=== PATIENT | male | born 1960 | race Caucasian/White ===

== ENCOUNTER → 2021-05-20 16:03 | Outpatient (CLI) | payer OTHER, SELFPAY ==
--- NOTE | ~2021-05-20 | XR_ITS ---
XR_[id number]_CR DATE: 05/20/2021 16:13 INDICATION: Neck pain TECHNIQUE: Open-mouth, AP, lateral, swimmer views COMPARISON: None FINDINGS: There is straightening of the cervical spine which may indicate muscle spasm. There is slight anterolisthesis at C3-4. There is slight retrolisthesis at C4-5. There is moderate degenerative disc disease and loss of disc space height at C5-6. Remaining cervical interspaces are well preserved. C1 and C2 are normally aligned and the odontoid process is intact. No fracture or dislocation or lock ed facet. No prevertebral soft tissue swelling. There is prominent degenerative change at the apophyseal joints. Uncovertebral joint spurring is note d in the mid to lower cervical spine. IMPRESSION: Straightening, which may be due to muscle spasm Minimal anterolisthesis at C3-4 Minimal retrolisthesis at C4-5 Moderately prominent degenerative disc disease at C5-6 Prominent degenerative change at the apophyseal joints throughout the cervical spine and of the mid t o lower uncovertebral joints Reviewed, dictated and finalized at Location A. Reviewed, dictated and finalized at location B. IMPRESSION: Straightening, which may be due to muscle spasm Minimal anterolisthesis at C3-4 Minimal retrolisthesis at C4-5 Moderately prominent degenerative disc disease at C5-6 Prominent degenerative change at the apophyseal joints throughout the cervical spine and of the mid to lower uncovertebral joints
== END ==
PROVIDERS: PCP Emergency Medicine; Visit Provider Emergency Medicine
DX: M48.02 Spinal stenosis, cervical region (principal); M47.812 Spondylosis without myelopathy or radiculopathy, cervical region; M53.82 Other specified dorsopathies, cervical region; M43.12 Spondylolisthesis, cervical region; M50.322 Other cervical disc degeneration at C5-C6 level
CPT/HCPCS: 72040

== ENCOUNTER → 2021-08-12 17:55 | Outpatient (CLI) | payer OTHER, SELFPAY ==
--- NOTE | ~2021-08-12 | MR_ITS ---
EXAMINATION: MR cervical spine wo con EXAM DATE: 08/12/2021 18:49 INDICATION: Cervicalgia, neck and upper back pain. TECHNIQUE: Multi-sequential, multiplanar MR images of the cervical spine were obtained without contra st. Axial T2, axial T2 MERGE sequence. Sagittal T1, T2, T2 fat saturation images also obtained. Com parison is made to prior examination from 02/09/2017. FINDINGS: There is mild disc disease at C5-6. The vertebral body and disc heights are otherwise well maintained. The vertebral bodies are aligned in the AP dimension. The spinal cord signal intensity a nd intrinsic morphology is normal. Cervicomedullary junction is normal in appearance. There are no gr spicious marrow signal abnormalities. Paraspinal soft tissue is unremarkable. Level by level evaluation: C2-C3: Disc does not extend beyond the endplate margin. Uncovertebral joint arthropathy: None. Facet joint arthropathy: Severe left, mild to moderate right. Neural foraminal stenosis: Mild left. Central canal stenosis: No stenosis. C3-C4: Disc does not extend beyond the endplate margin. Uncovertebral joint arthropathy: Mild to moderate left, mild right. Facet joint arthropathy: Severe left, moderate right. Neural foraminal stenosis: Severe left, mild to moderate right. Central canal stenosis: No stenosis. C4-C5: Disc does not extend beyond the endplate margin. Uncovertebral joint arthropathy: Mild to moderate bilateral. Facet joint arthropathy: Severe left, moderate right. Neural foraminal stenosis: Moderate left, mild to moderate right. Central canal stenosis: No stenosis. C5-C6: There is a mild diffuse disc bulge asymmetric to the right Uncovertebral joint arthropathy: Moderate bilateral. Facet joint arthropathy: Moderate to severe right, moderate left. Neural foraminal stenosis: No stenosis. Central canal stenosis: Moderate to severe right, moderate left. C6-C7: There is a mild diffuse disc bulge. Uncovertebral joint arthropathy: Mild to moderate bilateral. Facet joint arthropathy: Mild to moderate left, mild right. Neural foraminal stenosis: No stenosis. Central canal stenosis: No stenosis. C7-T1: Disc does not extend beyond the endplate margin. Uncovertebral joint arthropathy: None. Facet joint arthropathy: Mild bilateral. Neural foraminal stenosis: No stenosis. Central canal stenosis: No stenosis. Mild progression cervical spondylosis as detailed above. IMPRESSION: 1. Advanced cervical facet arthropathy, with multilevel neural foraminal stenosis as detailed above. Reviewed, dictated and finalized at location B. IMPRESSION: 1. Advanced cervical facet arthropathy, with multilevel neural foraminal steno sis as detailed above.
== END ==
PROVIDERS: PCP Emergency Medicine; Visit Provider Nurse Practitioner Family
DX: M54.2 Cervicalgia (principal); M48.02 Spinal stenosis, cervical region; M12.88 Other specific arthropathies, not elsewhere classified, other specified site
CPT/HCPCS: 72141

== ENCOUNTER 2022-10-27 12:16 | Day surgery (SDC) | payer OTHER, SELFPAY ==
[2022-09-23 15:05] VITALS: BMI 23.7
[2022-10-19 09:05] VITALS: BMI 22.8
--- NOTE | 2022-10-26 09:47 | WPDANESEPPF ---
Anes - Initial Pre Proc Eval Procedure: Operation Date: 10/27/22 14:00 Proposed Procedures p Screening Colonoscopy - Yohan Corbett MD Date/Time: 10/26/22 09:47 Surgeon: Yohan Corbett MD Pre Op Diagnosis: Neoplasm Screening Patient Data Age: 61 Gender: M Height: 1.73 m Weight: 68 kg Allergies Allergy/AdvReac Type Severity Reaction Status Date / Time No Known Allergies Allergy Verified 10/27/22 12:37 Home Medications Medication Instructions Recorded Confirmed Type niacin 500 mg tablet See Rx Instructions .Route .COMPLEX 04/07/20 10/27/22 History cyclobenzaprine 10 mg tablet See Rx Instructions PO .COMPLEX 04/13/21 10/27/22 Rx #60 tabs tramadol 50 mg tablet 50 mg PO Q6H PRN pain #30 tabs 04/13/21 10/27/22 Rx sodium,potassium,mag sulfates 17.5 See Rx Instructions PO .COMPLEX 09/23/22 10/27/22 Rx gram-3.13 gram-1.6 gram oral soln #354 mL (Suprep Bowel Prep Kit) clobetasol 0.05 % topical ointment 10/19/22 10/27/22 History (Temovate) cyclosporine 0.05 % eye drops in a 1 drp EACH EYE DAILY 10/19/22 10/27/22 History dropperette (Restasis) Patient hx anesthesia problems: none Family hx anesthesia problems: none Results Review: All pre-operative results and documents have been reviewed as part of the pre-operative evaluation. [facility] Past Medical History Medical History (Updated 10/26/22 @ 09:48 by Haroon Pierre DO) Spinal stenosis, cervical region Family History Family History Father Family history of liver disease Mother Diabetes mellitus, Onset Age: 73 Family history of liver disease, Onset Age: 73 Family history of arthritis, Onset Age: 73 Social History Social History Social History: Patient drinks 2-3 cups of caffeine daily. 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 Gender identity (if verbalized by the patient): Male Sexual Orientation (if Verbalized by the Patient): Straight or Heterosexual Spiritual care concerns: No Anes - Eval Final PreProcedure Day of Procedure 10/26/22 09:47 Patient weight: normal Heart: regular rate and rhythm Lungs: clear to auscultation and normal air movement Airway: Mallampati scale class II Neurological: alert and oriented Last oral intake: >/= 8 hours ASA classification: II Emergent: no Anesthetic plan: proceed Anesthesia type and monitoring: general GIVS and standard monitoring Results Review: All pre-operative results and documents have been reviewed as part of the pre-operative evaluation. Informed Consent: The patient's anesthetic plan and its attendant risks and benefits were discussed with the patient/family/POA. Questions were solicited and answers provided to the satisfaction of the patient/family/POA.
[2022-10-27 12:35] VITALS: BP 147/94; PULSE 82; RESP 20; TEMP 36.6; O2SAT 100
[2022-10-27] MEDS: LACTATED RINGERS 1,000 ML 150 ML IV CONT (12:49)
--- NOTE | 2022-10-27 13:26 | PM.HPGS ---
History of Present Illness History of Present Illness Consent: Risks, benefits, and alternatives have been discussed and questions answered. Patient agrees to proceed with procedure. Chief complaint: Neoplasm Screening Narrative: Sravan Harrison is a 61 year old male Presents for screening colonoscopy. Patient's current weight appetite and bowel movements are normal. Patient denies abdominal pain. He has had no bleeding. Family history noncontributory. Patient did have a previous colonoscopy 12 or 13 years ago that was unremarkable. Review of Systems Review of Systems: Review of systems noncontributory. [facility], [facility] Past Medical History Medical History (Updated 10/26/22 @ 09:48 by Haroon Pierre, DO) Spinal stenosis, cervical region Family History Family History Father Family history of liver disease Mother Diabetes mellitus, Onset Age: 73 Family history of liver disease, Onset Age: 73 Family history of arthritis, Onset Age: 73 Social History Social History Social History: Patient drinks 2-3 cups of caffeine daily. 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 Gender identity (if verbalized by the patient): Male Sexual Orientation (if Verbalized by the Patient): Straight or Heterosexual Spiritual care concerns: No Meds Home Medications and Allergies Home Medications Medication Instructions Recorded Confirmed Type niacin 500 mg tablet See Rx Instructions .Route .COMPLEX 04/07/20 10/27/22 History cyclobenzaprine 10 mg tablet See Rx Instructions PO .COMPLEX 04/13/21 10/27/22 Rx #60 tabs tramadol 50 mg tablet 50 mg PO Q6H PRN pain #30 tabs 04/13/21 10/27/22 Rx sodium,potassium,mag sulfates 17.5 See Rx Instructions PO .COMPLEX 09/23/22 10/27/22 Rx gram-3.13 gram-1.6 gram oral soln #354 mL (Suprep Bowel Prep Kit) clobetasol 0.05 % topical ointment 10/19/22 10/27/22 History (Temovate) cyclosporine 0.05 % eye drops in a 1 drp EACH EYE DAILY 10/19/22 10/27/22 History dropperette (Restasis) Allergies Allergy/AdvReac Type Severity Reaction Status Date / Time No Known Allergies Allergy Verified 10/27/22 12:37 Vital Signs Vital Signs - 24 hr 10/27/22 12:35 Temperature 97.8 F Pulse Rate 82 Respiratory Rate 20 Blood Pressure 147/94 H Pulse Oximetry 100 Oxygen Delivery Room Air Exam Narrative: Physical exam reveals patient to be alert. Vital signs stable. HEENT exam is unremarkable. Patient is anicteric. Lungs are clear to auscultation and percussion. Heart is without murmur or extra sounds. Abdomen bowel sounds are present soft nontender with no organomegaly. Digital external rectal exam is normal. Assessment and Plan Assessment and plan (1) Colon cancer screening: Code(s): Z12.11 - Encounter for screening for malignant neoplasm of colon Status: Acute Assessment and Plan: Patient presents for screening colonoscopy. He appears to be at average risk for colon polyps. Further recommendations may be given after endoscopy.
[2022-10-27 14:23] VITALS: BP 104/67; PULSE 85; RESP 16; O2SAT 99
[2022-10-27 14:39] VITALS: BP 111/72; PULSE 82; RESP 15; O2SAT 100
--- NOTE | 2022-10-27 14:46 | WPDANESPN ---
Anes - Prog Note Post-Op Date/Time: 10/27/22 14:46 Vital Signs: Last Vital Signs Temp 36.6 C 10/27/22 12:35 Pulse 82 10/27/22 14:39 Resp 15 10/27/22 14:39 BP 111/72 10/27/22 14:39 Pulse Ox 100 10/27/22 14:39 O2 Del Method Room Air 10/27/22 14:39 Pain Score (VAS): 0 I/O: Intake & Output 10/26/22 10/27/22 10/27/22 23:59 07:59 15:59 Intake Total 400 Balance 400 Patient Feedback: Patient satisfied with anesthetic care.
== END 2022-10-27 15:10 | disposition home or self-care (01) ==
PROVIDERS: PCP Emergency Medicine; Visit Provider Internal Medicine Gastroenterology
PROC: 0DJD8ZZ Inspection of Lower Intestinal Tract, Via Natural or Artificial Opening Endoscopic (ICD-10-PCS; CPT 45378; principal; 2022-10-27 14:00)
DX: Z12.11 Encounter for screening for malignant neoplasm of colon (principal)
CPT/HCPCS: 45378

== ENCOUNTER 2024-08-08 10:10 | Outpatient (CLI) | payer OTHER, SELFPAY ==
--- NOTE | 2024-08-08 10:21 | ECG_ITS ---
Test Date: 2024-08-08 10:29:32 Measurements Intervals [place] Rate: 66 P: 67 NM: 162 QRS: 9 QRSD: 109 T: 35 QT: 404 QTc: 424 Interpretive Statements SINUS RHYTHM WITH OCCASIONAL VENTRICULAR PREMATURE COMPLEXES No previous ECG available for comparison Electronically Signed On 08-08-2024 15:25:34 CDT by Paula Mao M.D.
== END 2024-08-08 10:11 | disposition home or self-care (01) ==
LOC: ANHCARD 10:12
PROVIDERS: PCP Emergency Medicine; Visit Provider Emergency Medicine
DX: I49.3 Ventricular premature depolarization (principal); R00.2 Palpitations
CPT/HCPCS: 93005

== ENCOUNTER 2024-08-08 10:38 | Outpatient (CLI) | payer OTHER, SELFPAY ==
--- NOTE | ~2024-08-08 | XR_ITS ---
XR shoulder RT min 2V Ordering provider: Yusuf Silva MD History: . M25.511 - Pain in right shoulder . Comparison: August 27, 2014 FINDINGS: BONES: No acute fracture or dislocation. Degenerative changes in the area of the greater tuberosity. JOINT SPACES: The acromioclavicular joint shows osteoarthritic changes. Normal. The glenohumeral join t is normal. SOFT TISSUES: Bony fragment is seen around the surgical neck of the humerus suggestive of synovial ch ondromatosis. IMPRESSION: No acute osseous abnormality right shoulder. Degenerative changes in the greater tuberosity. Highly suggestive synovium chondromatosis. Reviewed, dictated and finalized at location A.
== END 2024-08-08 10:39 | disposition home or self-care (01) ==
LOC: MICIMG 10:39
PROVIDERS: PCP Emergency Medicine; Visit Provider Emergency Medicine
DX: M25.511 Pain in right shoulder (principal)
CPT/HCPCS: 73030

== ENCOUNTER 2025-01-31 15:32 | Emergency (ER) | payer OTHER, SELFPAY ==
--- OUTSIDE RECORDS SUMMARY | 2025-01-31 15:36 | XMS_ITS | Continuity of Care Document ---
Author Organization [facility] Address [address] [place] [address] [address] [place] [address] Phone Care Team Providers Care Administrative Library Assistant Name Role Phone Fabiana OD, Yohan Unavailable Unavailable Procedures Procedure Date Eye Exam & Treatment Fundus Photography W/ Report Advance Directives Directive Yes / No Effective Date File Name No Information Encounters Encounter Description Practice Location Reason(s) For Visit Diagnoses Date Provider Providers Copied on Encounter [facility], [address], [place], [place], [id number], [place] tel:[phone] [facility] No Information 6-200 6 Jung OD Yohan. [facility] , [address], [place], [address], [place]. tel:[phone] Referring Provider: Asif Goldberg OD [facility] [address], [place], [place], [facility]. tel:[phone] Family History Family Member Type Diagnosis Age [...]
--- OUTSIDE RECORDS SUMMARY | 2025-01-31 15:37 | XMS_ITS | Continuity of Care Document ---
Author Organization [facility] Address [address] [place] [address] [address] [place] [address] Phone Care Team Providers Care Fourth Officer Name Role Phone Fabiana OD, Yohan Unavailable Unavailable Procedures Procedure Date Eye Exam & Treatment Fundus Photography W/ Report Advance Directives Directive Yes / No Effective Date File Name No Information Encounters Encounter Description Practice Location Reason(s) For Visit Diagnoses Date Provider Providers Copied on Encounter [facility], [address], [place], [place], [id number], [place] tel:[phone] [facility] No Information 6-200 6 Jung OD Yohan. [facility] , [address], [place], [address], [place]. tel:[phone] Referring Provider: Asif Goldberg OD [facility] [address], [place], [place], [facility]. tel:[phone] Family History Family Member Type Diagnosis Age At Onset No Information Payers Payer name Insurance type Covered democrat ID Authoriza tion(s) No Information Social History [...]
[2025-01-31 15:39] VITALS: BP 164/86; PULSE 82; RESP 16; TEMP 36.8; O2SAT 98
--- NOTE | 2025-01-31 15:39 | ED.SKABFB ---
HPI - Skin/Abscess/Foreign Bdy General Chief complaint: Skin/Abscess/Foreign Body Stated complaint: Skin/Abscess/Foreign Body Time Seen by Provider: 01/31/25 15:40 Source: patient, RN notes reviewed and old records reviewed Mode of arrival: ambulatory Limitations: no limitations History of Present Illness HPI narrative: 64-year-old male presents to the [facility] with concerns for redness to the right lower quadrant. States that he noticed something on Monday, 2 days ago. Tried popping it yesterday, now red, inflamed, hard. Patient denies any fevers. Related Data Allergies Allergy/AdvReac Type Severity Reaction Status Date / Time No Known Allergies Allergy Verified 01/31/25 15:36 Review of Systems Review of Systems: All systems reviewed & are unremarkable except as noted in HPI and below Constitutional: Constitutional: Reports no additional constitutional complaints ENT: Reports system reviewed and no additional complaints, except as documented Cardiovascular: Cardiovascular: Reports no additional cardiovascular complaints, Denies chest pain and Denies dyspnea Respiratory: Respiratory: Reports no additional respiratory complaints, Denies chest congestion, Denies cough and Denies dyspnea Musculoskeletal: Musculoskeletal: Reports no additional musculoskeletal complaints Integumentary/Breasts: Skin/Breast: Reports as per HPI [facility] Past Medical History Medical History Mixed hyperlipidemia Spinal stenosis, cervical region Family History Family History Father Family history of liver disease Mother Diabetes mellitus, Onset Age: 73 Family history of liver disease, Onset Age: 73 Family history of arthritis, Onset Age: 73 Social History Social History Social History: Patient drinks 2-3 cups of caffeine daily. 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 There is no relevant family history pertinent to the patient complaint. Exam Const: General: cooperative, healthy appearing, comfortable, no acute distress, well developed, alert and well nourished Nutritional Appearance: well nourished Orientation/consciousness: patient oriented x3 Limitations: no limitations HENMT: Head: normal to inspection Eyes: General: appearance normal, both eyes and all related structures Alignment and Position: alignment normal Neck: Neck: normal visual inspection, full ROM, no lymphadenopathy and no meningeal signs Chest: Chest palpation & inspection: normal inspection of the chest Resp: Effort & Inspection: normal respiratory effort and able to speak in complete sentences Cardio: Rate: regular rate Skin: General skin exam: normal color and no rashes or lesions noted Full body images:  1. Two and half by 1 and half raised indurated hard area, redness extending out to 6 x 4. Only center has increased warmth. Small amount of fluctuance noted Neuro: General: patient oriented x3, gait normal, moves all extremities and no meningeal signs Cognition (Neuro): normal cognition Speech: normal speech Gait exam (Neuro): Normal gait present Extrem: General: normal to inspection, full ROM, capillary refill normal and normal gait Psych: Appearance: grossly normal and well kempt Mental Status: mental status grossly normal Speech and movement: Normal speech and movement present and Clear speech present Affect: normal affect Attitude: cooperative Course Course Level of Care: Express Care Visit Vital Signs Vital signs: Vital Signs Temperature 98.3 F 01/31/25 15:39 Pulse Rate 82 01/31/25 15:39 Respiratory Rate 16 01/31/25 15:39 Blood Pressure 164/86 H 01/31/25 15:39 Pulse Oximetry 98 01/31/25 15:39 Oxygen Delivery Room Air 01/31/25 15:39 Temperature 98.3 F 01/31/25 15:39 Pulse Rate 82 01/31/25 15:39 Respiratory Rate 16 01/31/25 15:39 Blood Pressure 164/86 H 01/31/25 15:39 Pulse Oximetry 98 01/31/25 15:39 Oxygen Delivery Room Air 01/31/25 15:39 Reviewed Procedures Abscess I/D abdomen: Date of Incision: 01/31/25 Time of Incision: 15:55 Side (if applicable): right Local Anesthetic: lidocaine 1% Amount of anesthesia used (mL): 5 Technique: incised with #11 blade Amount of fluid expressed (mL): 1 Irrigation: No Packing used?: none I&D Results: Pus and Other (Serous fluid) Abcess I&D Additional Comments: Procedure explained to patient. Verbal consent obtained. Area cleaned with Betadine, multiple injections made with lidocaine for a total of 5 mils for anesthesia. Open center of indurated, fluctuant center possibly 1 ml of purulent drainage an otherwise serous drainage was noted. Patient tolerated procedure well, culture sent. MDM - Skin/Abscess/Foreign Bdy MDM Narrative Medical decision making narrative: Patient sitting in exam room nontoxic, vitals stable except blood pressure was elevated Patient presents with cellulitis, possible abscess. Opened abscessed, culture sent Patient appropriate for outpatient treatment with close follow-up with signs and symptoms proceed to the emergency room which he verbalized understanding Discharge instructions reviewed with patient, as well as provided in writing per nursing staff. The instructions also include specific and strict return/GO TO THE ER as well as f/u information. All questions have been answered, and the patient deny any further questions with discharge and discharge plan. Some parts of this dictation were generated by voice recognition software and may contain typographical and/or grammatical inaccuracies. . Differential Diagnosis Differential diagnosis: Likely abscess of skin or subcutaneous tissue and cellulitis Critical Care Time Critical Care Time Critical Care Time: No Discharge Plan Discharge Clinical Impression: Abscess of skin or subcutaneous tissue Qualifiers: Site of cutaneous abscess: trunk Site of cutaneous abscess of trunk: abdominal wall Qualified Code(s): L02.211 - Cutaneous abscess of abdominal wall Cellulitis Qualifiers: Site of cellulitis: trunk Site of cellulitis of trunk: abdominal wall Qualified Code(s): L03.311 - Cellulitis of abdominal wall Patient Disposition: Home Condition: Stable Instructions: Antibiotic Form, Cellulitis (ED) Additional Instructions: Today your blood pressure was 164/86. Please follow-up with primary care provider in 1-2 weeks to have this rechecked. DO NOT pick at the area. This will only make the area worse and drive infection deeper. Shower and wash with soapy water. Keep area clean and dry. Take all the antibiotics as prescribed. Make sure to keep a dressing in place especially while it is draining Follow up with PCP in 5 days Go directly to the emergency room for new or worsening symptoms Patient Language: Qatari Prescriptions: New clindamycin HCl [Cleocin HCl] 300 mg capsule 300 mg PO TID 7 Days Qty: 21 0RF clindamycin HCl [Cleocin HCl] 150 mg capsule 150 mg PO TID 7 Days Qty: 21 0RF No Action rosuvastatin [Crestor] 10 mg tablet 10 mg PO DAILY Qty: 90 0RF Follow-up/Referrals: Yusuf Silva MD [Primary Care Provider] - 1 Week ([facility] care follow up blood pressure,164/86, check and abscess check) Time of Disposition: 16:03
== END 2025-01-31 16:10 | disposition home or self-care (01) ==
PROVIDERS: Emergency Provider Nurse Practitioner; PCP Emergency Medicine
DX: L02.211 Cutaneous abscess of abdominal wall (principal); L03.311 Cellulitis of abdominal wall; E78.2 Mixed hyperlipidemia; M48.02 Spinal stenosis, cervical region
CPT/HCPCS: 10060; 87070; 87075; 87181; 87205; 99213; G0463

== ENCOUNTER 2025-04-29 13:38 | Outpatient (CLI) | payer OTHER, SELFPAY ==
--- NOTE | ~2025-04-29 | MR_ITS ---
MRI of the lumbar spine Clinical History: Sciatica Technique: Axial T2-weighted images, and sagittal T1-weighted, T2-weighted, and T2 fat-sat images wer e acquired. Following intravenous administration of 15 cc MultiHance gadolinium, T1-weighted fat-sat imaging was performed in the axial and sagittal planes. Findings: There is no acute fracture. There is 7 mm anterolisthesis of L4 over L5. No suspicious bone marrow signal abnormality seen. At L1-L2, there is no disc bulge or herniation. No spinal canal stenosis. There is mild left neural f oraminal narrowing. Right neural foramen preserved. At L2-L3, there is minimal disc bulge with mild facet arthropathy. No central canal stenosis. There i s minimal bilateral neural foraminal narrowing. L3-L4, there is disc bulge with moderate facet arthropathy. No central canal stenosis. There is moder ate right neural foraminal narrowing and mild left neural foraminal narrowing. At L4-L5, there is diffuse disc bulge/uncovering with moderate to advanced facet arthropathy. No cent ral canal stenosis. There is severe right neural foraminal narrowing. There is mild left neural sammy inal narrowing. At L5-S1, there is minimal disc bulge. There is mild facet arthropathy. No central canal stenosis. Th ere is advanced bilateral neural foraminal narrowing. Paravertebral soft tissues are unremarkable. No abnormal postcontrast enhancement. Impression: Moderate degenerative spondylosis overall, as detailed above. Findings are probably worst at L4-L5. 7 mm anterolisthesis of L4 over L5. Reviewed, dictated and finalized at [facility]. Impression: Moderate degenerative spondylosis overall, as detailed above. Findings are prob ably worst at L4-L5. 7 mm anterolisthesis of L4 over L5.
== END 2025-04-29 13:39 | disposition home or self-care (01) ==
LOC: MICIMG 13:38
PROVIDERS: PCP Emergency Medicine; Visit Provider Emergency Medicine
DX: M47.816 Spondylosis without myelopathy or radiculopathy, lumbar region (principal); M43.16 Spondylolisthesis, lumbar region; M54.30 Sciatica, unspecified side
CPT/HCPCS: 72158; A9577

== ENCOUNTER 2025-07-31 15:29 | Outpatient (CLI) | payer OTHER, SELFPAY ==
--- OUTSIDE RECORDS SUMMARY | 2006-10-10 09:21 | XMS_ITS | Continuity of Care Document ---
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 [facility] , [address], [place], [address], [place]. tel:[phone] Referring Provider: Asif Goldberg OD [facility] [address], [place], [place], [facility]. tel:[phone] Family History Family Member Type Diagnosis Age At Onset No Information Payers Payer name Insurance type Covered republican ID Authoriza tion(s) No Information Social History Type Description Quantity Date Captured Comments Sex Male Smoking Status No Information Chief Complaint And Reason For Visit No Information Reason For Referral Reason For Referral No Information History Of Present Illness Encounter Date Complaint History Of Prese nt Illness No Information Functional Status Date Functional Assessmen t No Information Instructions Date Instruction Additional Infor mation No Information Assessments Type Assessment Date No Information Patient Care Teams Name Effective Dates (start - stop) Status Members No Information
--- NOTE | 2025-07-31 15:45 | ECG_ITS ---
Test Date: 2025-07-31 15:54:13 Measurements Intervals [place] Rate: 62 P: 60 NV: 164 QRS: 10 QRSD: 116 T: 36 QT: 400 QTc: 407 Interpretive Statements SINUS RHYTHM INTRAVENTRICULAR CONDUCTION DELAY BORDERLINE ECG Compared to ECG 08/08/2024 10:29:32 Intraventricular conduction delay now present Electronically Signed On 07-31-2025 17:12:48 CDT by Tai Cabrera D.O.
[2025-07-31 16:24] LABS: Hematocrit 42.1 % (42.0-52.0); Hemoglobin 14.0 g/dL (14.0-18.0)
[2025-07-31 16:42] LABS: Albumin Level 4.8 g/dL (3.5-5.1); Estimated Glomerular Filt Rate > 60; Glucose 111 mg/dL (65-110)
--- OUTSIDE RECORDS SUMMARY | 2025-07-31 17:33 | XMS_ITS | Patient Health Record ---
Author Organization [facility] Address [address] [place], [place] [id number] Care Team Providers Care Shoemaking Finisher Name Role Phone THIERRY Meyer Unavailable [phone] Yusuf Silva Unavailable Unavailable Reason For Referral No Information Medications Medication SIG (Take, Route, Frequency, Duration) Notes Start Date End Date Status Nabumetone 500 MG Oral Tablet ORAL nabumetone 500 MG Oral TabletOriginal Medicationnabumetone 500 MG Oral Tablet *Reorder from [employer] for eRx and Interaction Alerts* 05/23/2016 Active terbinafine 250 MG Oral Tablet ORAL terbinafine 250 MG Oral TabletOriginal Medicationterbinafine 250 MG Oral Tablet *Reorder from [employer] for eRx and Interaction Alerts* 06/06/2016 Active Niacin 100 MG Oral Tablet ORAL niacin 100 MG Oral TabletOriginal Medicationniacin 100 MG Oral Tablet *Reorder from [employer] for eRx and Interaction Alerts* 05/09/2016 Active Plan Of Treatment No Information Insurance Providers Payer Name Payer Address Payer Phone Subscriber Number Group Number Insured Name Patient Relationship to Insured Coverage Start Date Coverage End Date [facility] [address] [address] [place] [id number] INDERJIT MCCONNELL Self - patient is the insured
--- OUTSIDE RECORDS SUMMARY | 2025-07-31 17:33 | XMS_ITS | Clinical Summary ---
Author Organization [facility] Address [address] [place] [id number] Care Team Providers Care Raise Miner Name Role Phone Yusuf Silva MD Primary Care Provide r Allergies No known active allergies Medications rosuvastatin (CRESTOR) 10 mg tablet Take 1 tablet (10 mg total) by mouth daily 02/13/2025 Active Active Problems No known active problems Surgical History Surgery Date Site/Laterality Comments FLUORO GUIDED INJECTION SHOULDER RIGHT 04/15/2025 Ri ght Social History Tobacco Use Types Packs/Day Years Used Date Smoking Tobacco: Every Day Cigarettes Smokeless Tobacco: Never Tobacco Cessation:Ready to Q uit: Not Asked; Counseling Given: Not Answered Sex and Gender Information Value Date Recorded Sex Assigned at Not on file Legal Sex Male 3:57 PM CDT Gender Identity Not on file Sexual Orientation Not on file Obstetrics History Last Filed Vital Signs Vital Sign Reading Time Taken Comments Blood Pressure 147/77 04/15/2025 2:07 PM CDT Pulse 62 04/15/2025 2:07 PM CDT Temperature - - Respiratory Rate 20 04/15/2025 2:07 PM CDT Oxygen Saturation - - Inhaled Oxygen Concentration - - Weight 72.6 kg (160 lb) 04/08/2025 2:52 PM CDT Height 172.7 cm (5' 8) 04/08/2025 2:52 PM CDT Body Mass Index 24.33 04/08/2025 2:52 PM CDT Plan of Treatment Health Maintenance Due Date Last Done Comments Colon Cancer Screening-Colonoscopy 1958 Depression Screening 1958 Fall Risk Assessment 1958 Hepatitis C Screening 1958 Prostate Cancer Screening-PSA 1958 DTaP/Tdap/Td Vaccine (1 - Tdap) 1969 Hepatitis B Screening 1976 Pneumococcal vaccine 65+ (1 of 2 - PCV) 1977 Zoster Vaccine (1 of 2) 2008 Abdominal Aortic Aneurysm (A AA) Screen 2023 Well Visit 65+ 2023 Covid-19 Vaccine (6 - 2024-2 6 season) 2025 09/15/2023, 05/31/2022, 09/29/2021, Additional history exists Influenza Vaccine (#1) 2025 , 07/24/2019, 07/21/2018, Additional history [place] [address] [facility] [place] [address] [facility] CHOICE PLUS Care Teams Raise Miner Relationship Specialty Start Date End Date Yusuf Silva MD [address] [place] [address] PCP - General Emergency Medicine 02/21/25
[2025-07-31 19:21] LABS: Hemoglobin A1C 5.7 % (<5.7)
== END 2025-07-31 15:30 | disposition home or self-care (01) ==
PROVIDERS: PCP Emergency Medicine; Visit Provider Orthopaedic Surgery
DX: M19.011 Primary osteoarthritis, right shoulder (principal); E78.9 Disorder of lipoprotein metabolism, unspecified; R73.9 Hyperglycemia, unspecified; R00.2 Palpitations
CPT/HCPCS: 36415; 82040; 82565; 82947; 83036; 85014; 85018; 93005

== ENCOUNTER 2025-08-06 15:53 | Outpatient (CLI) | payer OTHER, SELFPAY ==
--- OUTSIDE RECORDS SUMMARY | 2006-10-10 09:21 | XMS_ITS | Continuity of Care Document ---
Author Organization [facility] Address [address] [place] [address] [address] [place] [address] Phone Care Team Providers Care Slabber Name Role Phone Fabiana OD, Yohan Unavailable Unavailable Procedures Procedure Date Eye Exam & Treatment Fundus Photography W/ Report Advance Directives Directive Yes / No Effective Date File Name No Information Encounters Encounter Description Practice Location Reason(s) For Visit Diagnoses Date Provider Providers Copied on Encounter [facility], [address], [place], [place], [id number], [place] tel:[phone] [facility] No Information 6-200 6 Jung OD Yohan. [facility] , [address], [place], [address], [place]. tel:[phone] Referring Provider: Asif Goldberg OD [facility] [address], [place], [place], [facility]. tel:[phone] Family History Family Member Type Diagnosis Age At Onset No Information Payers Payer name Insurance type Covered alliance party ID Authoriza tion(s) No Information Social History [...]
--- NOTE | ~2025-08-06 | CT_ITS ---
EXAMINATION: CT_STKSHORTWO_CT DATE: 08/06/2025 16:46 INDICATION: Right shoulder pain. Preoperative planning. TECHNIQUE: High resolution computed tomography (CT) of the right shoulder was performed without intravenous contrast. Additional sagittal and coronal reconstructions were performed. Automated exposure control and iterative reconstruction technique were employed. The dose-length product was 132.06 mGy-c m. COMPARISON: Radiograph dated 08/08/2024 FINDINGS: Bone alignment is normal. No fracture. Moderate osteoarthritis at the right acromioclavicular joint. Additional mild osteoarthritis at the right glenohumeral joint with mild subarticular cystic change along the anterosuperior articular surface of the humeral head and along the inferior rim of the glenoid. Small marginal ossified swelling the glenoid and moderate size marginal ossified swelling the inferomedial aspect of the humeral head. Likely reactive small glenohumeral joint effusion with loose osteochondral body at the axillary and deep subscapular recesses. There are additional loose osteochondral bodies along the long head biceps tendon sheath. Cystic change at the lesser tuberosity footplate of the subscapularis tendon with small amount of heterotopic ossification at the distal tendon. 4 mm nodule in the right upper lobe. No pathologically enlarged lymphadenopathy at the right axilla, right hilum or visualized portion of the right neck and mediastinum. IMPRESSION: 1. Moderate right glenohumeral osteoarthritis with small joint effusion and several loose osteochondral bodies in the recess of the joint and extending into the long head biceps tendon sheath. 2. Moderate acromioclavicular osteoarthritis. 3. 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 4. Indeterminate 4 mm right upper lobe pulmonary nodule. If the patient is low risk for lung cancer, no follow-up is needed. If the patient is high risk (i.e., history of smoking or asbestos or significant radiation exposure), optional follow-up chest CT could be considered at 12 months. Reviewed, dictated and finalized at location A. IMPRESSION: 1. Moderate right glenohumeral osteoarthritis with small joint effusion and sev eral loose osteochondral bodies in the recess of the joint and extending into t he long head biceps tendon sheath. 2. Moderate acromioclavicular osteoarthritis. 3. 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 4. Indeterminate 4 mm right upper lobe pulmonary nodule. If the patient is low risk for lung cancer, no follow-up is needed. If the patient is high risk (i.e. , history of smoking or asbestos or significant radiation exposure), optional f ollow-up chest CT could be considered at 12 months.
--- OUTSIDE RECORDS SUMMARY | 2025-08-06 20:02 | XMS_ITS | Patient Health Record ---
Author Organization [facility] Address [address] [place], [place] [id number] Care Team Providers Care Township Supervisor Name Role Phone THIERRY Meyer Unavailable [phone] Yusuf Silva Unavailable Unavailable Reason For Referral No Information Medications Medication SIG (Take, Route, Frequency, Duration) Notes Start Date End Date Status Nabumetone 500 MG Oral Tablet ORAL nabumetone 500 MG Oral TabletOriginal Medicationnabumetone 500 MG Oral Tablet *Reorder from [employer] for eRx and Interaction Alerts* 05/23/2016 Active terbinafine 250 MG Oral Tablet ORAL terbinafine 250 MG Oral TabletOriginal Medicationterbinafine 250 MG Oral Tablet *Reorder from [employer] for eRx and Interaction Alerts* 06/06/2016 Active Niacin 100 MG Oral Tablet ORAL niacin 100 MG Oral TabletOriginal Medicationniacin 100 MG Oral Tablet *Reorder from [employer] for eRx and Interaction Alerts* 05/09/2016 Active Plan Of Treatment No Information Insurance Providers Payer Name Payer Address Payer Phone Subscriber Number Group Number Insured Name Patient Relationship to Insured Coverage Start Date Coverage End Date [facility] [address] [address] [place] [id number] INDERJIT MCCONNELL Self - patient is the insured
--- OUTSIDE RECORDS SUMMARY | 2025-08-06 20:02 | XMS_ITS | Clinical Summary ---
Author Organization [facility] Address [address] [place] [phone] Care Team Providers Care Welder Apprentice Arc Name Role Phone Yusuf Silva MD Primary [...] 07/24/2019, 07/21/2018, Additional history [place] [address] [facility] CHOICE PLUS [facility] H[facility]/PPO Address: [place] [id number] [place] [address] [place] [address] [facility] CHOICE PLUS Care Teams Welder Apprentice Arc Relationship Specialty Start Date End Date Yusuf Silva MD [address] [place] [address] PCP - General Emergency Medicine 02/21/25
== END 2025-08-06 15:54 | disposition home or self-care (01) ==
PROVIDERS: PCP Emergency Medicine; Visit Provider Orthopaedic Surgery
DX: M19.011 Primary osteoarthritis, right shoulder (principal); M25.411 Effusion, right shoulder; R91.1 Solitary pulmonary nodule
CPT/HCPCS: 73200